=== PATIENT | male | born 1955 | race Caucasian/White ===

== ENCOUNTER 2019-12-27 10:08 | Day surgery (SDC) | payer MEDICARE, OTHER, SELFPAY ==
[2019-12-23 11:45] VITALS: BMI 28.3
--- NOTE | 2019-12-25 12:57 | P.CONAN_ITS ---
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 Hiatal hernia History of Ortega's esophagus History of gastrostomy tube placement History of high cholesterol Hypertension Surgical History Surgical History History of ERCP History of esophagogastroduodenoscopy (EGD) History of liver biopsy Hx of cerebral aneurysm repair Hx of cholecystectomy Hx of colonoscopy Hx of hemorrhoidectomy Hx of tracheostomy Social History Social History Smoking Status: Former smoker Smoking Quit Date: 1995 Use of substances other than those prescribed or required for medical reasons: No Have you been hit, kicked, punched, or otherwise hurt by someone within the past year? If so, by whom?: No Advance Directives: No Advance Directives Information Provided: No Advance Directives on File: No Recently lost weight without trying: No Meds Allergies Allergy/AdvReac Type Severity Reaction Status Date / Time morphine [MORPHINE] AdvReac Unknown Nausea and Unverified 12/23/19 11:45 Vomiting Influenza Vac Split Quad Allergy Unknown Hx of Uncoded 08/21/19 00:00 Guillain [place] Syndrome Exam Exam Date and Time: December 25, 2019 1257 Height,Weight and Vital Signs: Height 5 ft 7 in Weight 82.1 kg Pertinent Lab Results Pertinent Lab Results: ECHO 12/2018: LV sys function nml, EF 55-60%, no R WMA, no obv valve path, cannot exclude interatrial shunt BUBBLE STUDY 12/2018: No PFO Assessment and Plan Assessment Anesthesia Assessment: Chart Reviewed (12/25/19 ) Documented by User: Julianne Patterson 12/27/19 11:03 [facility] Past Medical History Medical History (Updated 12/25/19 @ 12:59 by Alicia Mike) Cerebral aneurysm GERD (gastroesophageal reflux disease) 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 Hiatal hernia History of Ortega's esophagus History of gastrostomy tube placement History of high cholesterol Hypertension Family History Family history of problems with anesthesia: No Surgical History Surgical History History of ERCP History of esophagogastroduodenoscopy (EGD) History of liver biopsy Hx of cerebral aneurysm repair Hx of cholecystectomy Hx of colonoscopy Hx of hemorrhoidectomy Hx of tracheostomy History of Problems with Anesthesia: No Social History Social History Smoking Status: Former smoker Smoking Quit Date: 1995 Use of substances other than those prescribed or required for medical reasons: No Have you been hit, kicked, punched, or otherwise hurt by someone within the past year? If so, by whom?: No Advance Directives: No Advance Directives Information Provided: No Advance Directives on File: No Recently lost weight without trying: No Meds Allergies Allergy/AdvReac Type Severity Reaction Status Date / Time morphine [MORPHINE] AdvReac Unknown Nausea and Unverified 12/23/19 11:45 Vomiting Influenza Vac Split Quad Allergy Unknown Hx of Uncoded 08/21/19 00:00 Guillain [place] Syndrome Exam Height,Weight and Vital Signs: Vital Signs Temp Pulse Resp BP Pulse Ox 12/27/19 10:24 98.1 F 59 16 133/85 96 Airway Mallampati Class: II TM Dist: >3cm Neck ROM: Full Loose/Missing/Broken Teeth: No Heart: RRR Lungs: CTAB Assessment and Plan Assessment Anesthesia Assessment: Anesthesia Plan Discussed, Consent Obtained and Chart Reviewed Final Anesthetic Review NPO: Yes Intake Type: Clears Intake Timing: Greater than 8 hours and Solids Intake Timing: Greater than 8 hours ASA Class: III Final Preanesthetic Review: No Changes in Pt Med Stat, Meds & Allergies Reviewed, Consent Obtained/Reviewed, Med/Surg/Anes Hx Reviewed and Anes Risks/Benef Reviewed Patient Risk: Intermediate Procedure Risk: Low Anesthetic Plan Anesthetic Plan: MAC: Disposition: Standard PACU
[2019-12-27 10:24] VITALS: BP 133/85; PULSE 59; RESP 16; TEMP 36.7; O2SAT 96; BMI 27.8
--- NOTE | 2019-12-27 11:53 | PM.OP ---
Brief Operative Note Date of procedure: 12/27/19 Pre-op diagnosis: Ortega's esophagus, Screening Post-op diagnosis: other (Hiatal hernia, GERD, Colon polyps, Diverticulosis, Internal Hemorrhoids) Procedure: EGD with biopsy, Colonoscopy to cecum and TI with Biopsy and removal of polyps Anesthesia: MAC Surgeon: Alton Samayoa Pathology: other (A. EGJ at 34cm B. Polyps at 60cm C. Polyp at 50cm) Condition: stable Disposition: PACU
[2019-12-27 11:56] VITALS: BP 95/62; PULSE 64; RESP 18; TEMP 36.2; O2SAT 100
[2019-12-27 12:09] VITALS: BP 105/68; PULSE 69; RESP 17
--- NOTE | 2019-12-27 13:24 | OP_ITS ---
SURGEON: Alton Samayoa MD INDICATIONS: The patient presents for evaluation of gastroesophageal reflux, history of Ortega's esophagus, personal history of tubular adenoma of the colon, and colorectal cancer screening. Full consent has been obtained from him for this, including risks of bleeding and perforation. PREOPERATIVE DIAGNOSIS: POSTOPERATIVE DIAGNOSIS: PROCEDURE PERFORMED: Esophagogastroduodenoscopy with biopsy and colonoscopy to the cecum and terminal ileum with biopsy and removal of polyps. ESTIMATED BLOOD LOSS: COMPLICATIONS: ANESTHESIA: Monitored anesthesia care. ASSISTANTS: SPECIMENS: PREOPERATIVE DIAGNOSES: Gastroesophageal reflux, Ortega's esophagus, personal history of tubular adenoma of the colon, colorectal cancer screening. POSTOPERATIVE DIAGNOSES: Gastroesophageal reflux, Ortega's esophagus, personal history of tubular adenoma of the colon, colorectal cancer screening, hiatal hernia, colon polyps, diverticulosis, and internal hemorrhoids. DESCRIPTION OF PROCEDURE: The patient was placed in the left lateral decubitus position. The Olympus video gastroscope was passed in the posterior oropharynx and upper esophagus under direct vision. The scope was passed slowly into the distal esophagus. The gastroesophageal junction appeared at 34 cm. There was a very slight irregularity consistent with reflux, but no definitive evidence of Ortega's mucosa. There was no esophagitis. The scope was entered into the stomach. There was a small to moderate-sized hiatal hernia. The scope was advanced to the pylorus and duodenum cannulated to the descending portion. The duodenum including the bulb appeared normal without mass or ulceration. The scope was withdrawn back into the stomach. The gastric antrum and body appeared normal with good peristalsis. The scope was retroflexed visualizing the proximal stomach carefully, which appeared normal, without any sign of mass or ulceration. Scope was straightened. Scope was withdrawn back in the esophagus. Biopsies were obtained at the EG junction at 34 cm. Proximal to this, the esophageal mucosa appeared normal. The scope was withdrawn from the patient. He was turned around for the colonoscopy. The digital rectal exam revealed no abnormalities. The Olympus video pediatric colonoscope was entered into the rectum and advanced easily to the cecum. Once in the cecum, I did identify normal-appearing cecal pouch with appendiceal orifice and a normal-appearing ileocecal valve. The terminal ileum was cannulated and appeared normal. The scope was withdrawn back in the colon. The entire cecum and ileocecal valve appeared normal. The scope was slowly withdrawn assessing all mucosal surfaces carefully. Preparation was excellent. At 60 cm and at 50 cm, were flat less than 5 mm polyps, which were all biopsied and completely removed with cold biopsy forceps. I did not visualize any other polyps, colitis, nor angiodysplasia. There was a mild amount of sigmoid diverticulosis. In the rectum, scope was retroflexed visualizing internal hemorrhoids, but no other pathology. The rectal mucosa appeared normal. The scope was straightened and withdrawn from the patient. He tolerated the procedure well and was returned to the recovery area in stable condition. IMPRESSION: 1. Colon polyps, status post biopsy and removal. 2. Diverticulosis. 3. Internal hemorrhoids. 4. Hiatal hernia, history of Ortega's esophagus. PLAN: The results of biopsy will be checked. I would recommend a repeat upper endoscopy and colonoscopy in 5 years for further screening and surveillance. He was advised to continue his omeprazole and loperamide. He will otherwise see me on a p.r.n. basis. This has been discussed with his . MD EARL Wallace/FIDEL / [id number]
== END 2019-12-27 13:20 | disposition home or self-care (01) ==
PROVIDERS: PCP Internal Medicine; Visit Provider Internal Medicine
PROC: (CPT 45380; principal; 2019-12-27 11:30)
DX: Z12.11 Encounter for screening for malignant neoplasm of colon (principal); Z86.010 Personal history of colon polyps; K57.30 Diverticulosis of large intestine without perforation or abscess without bleeding; D12.4 Benign neoplasm of descending colon; D12.5 Benign neoplasm of sigmoid colon; K64.8 Other hemorrhoids; K21.00 Gastro-esophageal reflux disease with esophagitis, without bleeding; K22.70 Barrett's esophagus without dysplasia; K44.9 Diaphragmatic hernia without obstruction or gangrene; I10 Essential (primary) hypertension; G61.0 Guillain-Barre syndrome; Z79.899 Other long term (current) drug therapy; Z90.49 Acquired absence of other specified parts of digestive tract; Z87.891 Personal history of nicotine dependence; Z88.8 Allergy status to other drugs, medicaments and biological substances
CPT/HCPCS: 45380; 43239; 88305

== ENCOUNTER 2020-02-28 06:33 | Outpatient (REF) | payer MEDICARE, OTHER, SELFPAY ==
[2020-02-28 11:50] LABS: Alanine Aminotransferase 19 U/L (0-40); Albumin Level 4.4 g/dL (3.5-5.0); Alkaline Phosphatase 59 U/L (39-117); Anion Gap 15 (12-20); Aspartate Amino Transferase 18 U/L (5-37); Bilirubin Total 0.9 mg/dL (0.0-1.0); Blood Urea Nitrogen 26 mg/dL (9-16); Calcium 9.3 mg/dL (8.4-10.2); Carbon Dioxide 25 mmol/L (22-29); Chloride 105 mmol/L (96-108); Cholesterol 194 mg/dL; Estimated Glomerular Filt Rate 51; Glucose Fasting 96 mg/dL (60-99); HDL Cholesterol 46 mg/dL; LDL Cholesterol Calculated 123 mg/dl; Potassium 4.4 mmol/l (3.3-5.1); Sodium 141 mmol/L (135-145); Total Protein 7.4 g/dL (6.5-8.0); Triglycerides 125 mg/dL
[2020-02-28 11:59] LABS: Prostate Specific Antigen Scr 3.44 ng/mL (<0.05-4.0)
== END 2020-02-28 06:34 | disposition home or self-care (01) ==
LOC: HO.HMGCLDS 06:33
PROVIDERS: PCP Nurse Practitioner Family; Visit Provider Nurse Practitioner Family
DX: I10 Essential (primary) hypertension (principal); Z12.5 Encounter for screening for malignant neoplasm of prostate
CPT/HCPCS: 80053; 80061; 84153; 84443

== ENCOUNTER → 2020-05-07 14:45 | Outpatient (BNVA) | payer MEDICARE, OTHER, SELFPAY | PROVIDERS: PCP Nurse Practitioner Family; Visit Provider Urology | DX: Z13.89 Encounter for screening for other disorder (principal) | CPT/HCPCS: 99212 ==

== ENCOUNTER → 2020-06-04 10:24 | Outpatient (BNVA) | payer MEDICARE, OTHER, SELFPAY | PROVIDERS: PCP Nurse Practitioner Family; Visit Provider Urology | DX: Z13.89 Encounter for screening for other disorder (principal) | CPT/HCPCS: Q3014 ==

== ENCOUNTER 2020-06-22 | Outpatient (REF) | payer MEDICARE, OTHER, SELFPAY ==
--- NOTE | ~2020-06-22 | XR_ITS ---
EXAMINATION: XR CERVICAL SPINE CLINICAL INFORMATION: Cervical disc disorder. COMPARISON: None TECHNIQUE: 3 views of the cervical spine were obtained. FINDINGS: There is no abnormal prevertebral soft tissue swelling identified. No acute fracture is seen. There is some degenerative disc space narrowing seen C3 through C6. Some marginal spurring is seen C3 through C7. XR/XR cervical spine 3V IMPRESSION: Multilevel cervical spondylosis as described.
[2020-06-22 10:42] LABS: MANUAL DIFF FLAG NO
[2020-06-22 10:49] LABS: Basophils Absolute Auto 0.1 X10*3/uL (0.0-0.2); Basophils Percent Auto 0.9 % (0-2); Eosinophils Absolute Auto 0.2 X10*3/uL (0.0-0.4); Eosinophils Percent Auto 2.9 % (0-4); Hematocrit 47.4 % (42-52); Hemoglobin 15.6 g/dl (14.0-18.0); Imm Gran Abs Auto 0.02 X10*3/uL (0.00-0.03); Imm Gran Pct Auto 0.4 % (0.0-0.4); Lymphocytes Absolute Auto 1.4 X10*3/uL (1.2-4.9); Lymphocytes Percent Auto 26.5 % (20-40); Mean Corpuscular HGB Conc 32.9 g/dl (31.0-36.0); Mean Corpuscular Hemoglobin 29.2 pg (27.0-33.0); Mean Corpuscular Volume 88.6 fL (80-98); Monocytes Absolute Auto 0.6 X10*3/uL (0.1-1.2); Monocytes Percent Auto 10.8 % (2-11); Neutrophils Absolute Auto 3.2 X10*3/uL (2.0-8.3); Neutrophils Percent Auto 58.5 % (45-73); Platelet Count 177 X10*3/uL (160-400); Red Blood Count 5.35 X10*6/uL (4.60-5.80); Red Cell Distribution Width 13.1 % (11.0-16.0); White Blood Count 5.4 X10*3/uL (4.8-10.8)
[2020-06-22 11:16] LABS: Alanine Aminotransferase 24 U/L (0-40); Albumin Level 4.6 g/dL (3.5-5.0); Alkaline Phosphatase 63 U/L (39-117); Anion Gap 15 (12-20); Aspartate Amino Transferase 22 U/L (5-37); Bilirubin Total 0.6 mg/dL (0.0-1.0); Blood Urea Nitrogen 22 mg/dL (9-16); Calcium 9.5 mg/dL (8.4-10.2); Carbon Dioxide 25 mmol/L (22-29); Chloride 105 mmol/L (96-108); Estimated Glomerular Filt Rate 49; Glucose Random 104 mg/dL (60-115); Potassium 5.2 mmol/L (3.3-5.1); Sodium 140 mmol/L (135-145); Total Protein 7.6 g/dL (6.5-8.0)
[2020-06-22 11:47] LABS: CDIFF Ag Negative (Negative); CDIFF Internal ctrl Dots and bkg OK (V); CDiff Toxin Negative (Negative)
[2020-06-22 12:45] LABS: Leukocytes Stool Qualitative NEGATIVE (NEGATIVE)
== END 2020-06-22 00:01 | disposition home or self-care (01) ==
LOC: HO.HMGCLNP
PROVIDERS: PCP Nurse Practitioner Family; Visit Provider Nurse Practitioner Family
DX: M50.90 Cervical disc disorder, unspecified, unspecified cervical region (principal); R19.7 Diarrhea, unspecified
CPT/HCPCS: 72040; 80053; 84443; 85025; 87045; 87046; 87177; 87209; 87324; 87329; 87338; 87449; 89055

== ENCOUNTER 2020-06-23 08:06 | Outpatient (REF) | payer MEDICARE, OTHER, SELFPAY ==
[2020-06-23 09:15] LABS: Alanine Aminotransferase 22 U/L (0-40); Albumin Level 4.4 g/dL (3.5-5.0); Alkaline Phosphatase 57 U/L (39-117); Anion Gap 13 (12-20); Aspartate Amino Transferase 20 U/L (5-37); Bilirubin Total 0.5 mg/dL (0.0-1.0); Blood Urea Nitrogen 19 mg/dL (9-16); Calcium 8.6 mg/dL (8.4-10.2); Carbon Dioxide 27 mmol/L (22-29); Chloride 104 mmol/L (96-108); Estimated Glomerular Filt Rate 48; Glucose Random 107 mg/dL (60-115); Potassium 4.5 mmol/L (3.3-5.1); Sodium 139 mmol/L (135-145); Total Protein 7.2 g/dL (6.5-8.0)
== END 2020-06-23 08:07 | disposition home or self-care (01) ==
LOC: HO.LAB 08:06
PROVIDERS: PCP Nurse Practitioner Family; Visit Provider Nurse Practitioner Family
DX: E87.5 Hyperkalemia (principal); R79.89 Other specified abnormal findings of blood chemistry
CPT/HCPCS: 36415; 80053

== ENCOUNTER 2020-08-06 12:08 | Outpatient (REF) | payer MEDICARE, OTHER, SELFPAY ==
[2020-08-06 13:11] LABS: Glucose Urine UA NEG (NEG); Leukocyte Esterase Urine NEG (NEG); Nitrite Urine NEG (NEG); Specific Gravity - Urine 1.015 (1.005-1.025); Urine Blood NEG (NEG); Urine Ketones NEG (NEG); Urine Protein NEG (NEG-TRACE)
[2020-08-06 13:14] LABS: Appearance Urine CLEAR; Color Urine YELLOW
[2020-08-06 13:25] LABS: Anion Gap 12 (12-20); Blood Urea Nitrogen 25 mg/dL (9-16); Carbon Dioxide 28 mmol/L (22-29); Chloride 102 mmol/L (96-108); Estimated Glomerular Filt Rate 49; Sodium 137 mmol/L (135-145)
[2020-08-06 13:54] LABS: RBC Urine 0-2 /HPF (0); WBC Urine 0 /HPF (0-4)
[2020-08-06 13:59] LABS: Creatinine Urine 50.39 mg/dL; Total Protein Urine Random < 7 mg/dL (<12)
== END 2020-08-06 12:09 | disposition home or self-care (01) ==
LOC: HO.LAB 12:08
PROVIDERS: PCP Internal Medicine; Visit Provider Internal Medicine Nephrology
DX: I10 Essential (primary) hypertension (principal)
CPT/HCPCS: 36415; 80051; 81001; 82310; 82565; 84156; 84520

== ENCOUNTER 2020-10-09 07:48 | Outpatient (REF) | payer MEDICARE, OTHER, SELFPAY ==
[2020-10-09 09:41] LABS: TSH reflex Free T4 0.74 uIU/mL (0.32-4.0)
[2020-10-09 09:43] LABS: Alanine Aminotransferase 19 U/L (0-40); Albumin Level 4.3 g/dL (3.5-5.0); Alkaline Phosphatase 54 U/L (39-117); Anion Gap 12 (12-20); Aspartate Amino Transferase 19 U/L (5-37); Bilirubin Total 0.7 mg/dL (0.0-1.0); Blood Urea Nitrogen 23 mg/dL (9-16); Calcium 9.5 mg/dL (8.4-10.2); Carbon Dioxide 28 mmol/L (22-29); Chloride 107 mmol/L (96-108); Cholesterol 196 mg/dL; Estimated Glomerular Filt Rate 43; Glucose Fasting 101 mg/dL (60-99); HDL Cholesterol 41 mg/dL; LDL Cholesterol Calculated 132 mg/dl; Potassium 5.3 mmol/L (3.3-5.1); Sodium 142 mmol/L (135-145); Total Protein 7.1 g/dL (6.5-8.0); Triglycerides 118 mg/dL
== END 2020-10-09 07:49 | disposition home or self-care (01) ==
LOC: HO.LAB 07:48
PROVIDERS: PCP Internal Medicine; Visit Provider Nurse Practitioner Family
DX: I10 Essential (primary) hypertension (principal)
CPT/HCPCS: 36415; 80053; 80061; 84443

== ENCOUNTER 2020-10-23 06:59 | Outpatient (REF) | payer MEDICARE, OTHER, SELFPAY ==
[2020-10-23 07:58] LABS: Anion Gap 13 (12-20); Carbon Dioxide 24 mmol/L (22-29); Chloride 108 mmol/L (96-108); Potassium 4.9 mmol/L (3.3-5.1); Sodium 140 mmol/L (135-145)
== END 2020-10-23 07:00 | disposition home or self-care (01) ==
LOC: HO.LAB 06:59
PROVIDERS: PCP Nurse Practitioner Family; Visit Provider Nurse Practitioner Family
DX: E87.5 Hyperkalemia (principal)
CPT/HCPCS: 36415; 80051

== ENCOUNTER 2021-02-26 09:34 | Outpatient (REF) | payer MEDICARE, OTHER, SELFPAY ==
[2021-02-26 10:30] LABS: Blood Urea Nitrogen 24 mg/dL (9-16); Estimated Glomerular Filt Rate 42
== END 2021-02-26 09:35 | disposition home or self-care (01) ==
LOC: HO.LAB 09:34
PROVIDERS: PCP Internal Medicine; Visit Provider Psychiatry & Neurology Neurology
DX: Z01.812 Encounter for preprocedural laboratory examination (principal); I67.1 Cerebral aneurysm, nonruptured
CPT/HCPCS: 36415; 82565; 84520

== ENCOUNTER 2021-03-01 08:45 | Outpatient (REF) | payer MEDICARE, OTHER, SELFPAY ==
--- NOTE | ~2021-03-01 | CT_ITS ---
EXAMINATION: CT ANGIOGRAM BRAIN WITH CONTRAST CLINICAL INFORMATION: Cerebral aneurysm. COMPARISON: Head CT 04/19/2018. TECHNIQUE: Test bolus sequences followed by intravenous administration 75 mL of Omnipaque 350. Helical imaging was performed in the axial plane from the skull base to the skull vertex. Delayed postcontrast imaging of the head was also performed. The data was processed at the chief cardiopulmonary technologist workstation for generation of MIP sequences. Angled MIPs and volume rendered reformatted images were also generated at an offline 3D workstation. This CT examination was performed using dose optimization techniques as appropriate, variously including the following: *Automated exposure control *Adjustment of mA and/or kV according to patient size (this includes techniques or standardized protocols for targeted exams where dose is matched to indication/reason for exam; i.e. extremities or head) *Use of iterative reconstruction technique DLP: 2450 mGy-cm FINDINGS: Brain: There are postoperative findings of bilateral pterional craniotomies. Right and left-sided aneurysm clips are seen in the region of the MCAs. Encephalomalacic and gliotic changes are seen in both anterior inferior temporal lobes. There is no intracranial hemorrhage, extra-axial collection, mass effect, or territorial infarction. The ventricles are normal in size without hydrocephalus. No abnormal enhancement is seen. The dural venous sinuses are normally opacified. The extracranial structures are within normal limits. Head CTA: Allowing for streak artifact no recurrent aneurysm is seen within the region of the right or left-sided MCA aneurysm clips. No new aneurysms are seen. The anterior and posterior circulations are patent. No stenosis is seen. CT/CT angio head IMPRESSION: No acute intracranial abnormality identified. Postoperative findings related to bilateral pterional craniotomies for left and right-sided MCA aneurysm clipping is redemonstrated. Within the limits of streak artifact, no definite recurrence is seen. No evidence of new aneurysm or stenosis. Chronic encephalomalacic and gliotic changes again seen in the bilateral anterior inferior temporal lobes.
[2021-03-01] MEDS: iohexoL 350 MG/ML 100 ML INFUS..BTL 75 ML IV (10:09)
== END 2021-03-01 08:46 | disposition home or self-care (01) ==
LOC: HO.CT 08:45
PROVIDERS: PCP Internal Medicine; Visit Provider Psychiatry & Neurology Neurology
DX: I67.1 Cerebral aneurysm, nonruptured (principal)
CPT/HCPCS: 70496; Q9967

== ENCOUNTER 2021-10-06 08:14 | Outpatient (REF) | payer MEDICARE, OTHER, SELFPAY ==
[2021-10-06 11:22] LABS: MANUAL DIFF FLAG NO
[2021-10-06 11:27] LABS: Basophils Absolute Auto 0.1 X10*3/uL (0.0-0.2); Basophils Percent Auto 1.2 % (0-2); Eosinophils Absolute Auto 0.1 X10*3/uL (0.0-0.4); Eosinophils Percent Auto 1.9 % (0-4); Hematocrit 44.6 % (42.0-52.0); Hemoglobin 14.9 g/dl (14.0-18.0); Imm Gran Abs Auto 0.02 X10*3/uL (0.00-0.03); Imm Gran Pct Auto 0.3 % (0.0-0.4); Lymphocytes Absolute Auto 1.4 X10*3/uL (1.2-4.9); Lymphocytes Percent Auto 24.4 % (20-40); Mean Corpuscular HGB Conc 33.4 g/dl (31.0-36.0); Mean Corpuscular Hemoglobin 29.6 pg (27.0-33.0); Mean Corpuscular Volume 88.5 fL (80.0-98.0); Mean Platelet Volume 9.4 fL (9.4-12.4); Monocytes Absolute Auto 0.5 X10*3/uL (0.1-1.2); Monocytes Percent Auto 8.8 % (2-11); Neutrophils Absolute Auto 3.7 x10*3/uL (2.0-8.3); Neutrophils Percent Auto 63.4 % (45-73); Platelet Count 182 X10*3/uL (160-400); Red Blood Count 5.04 X10*6/uL (4.60-5.80); Red Cell Distribution Width 12.9 % (11.0-16.0); White Blood Count 5.8 X10*3/uL (4.8-10.8)
[2021-10-06 11:39] LABS: Appearance Urine CLEAR; Color Urine YELLOW; Glucose Urine UA NEG (NEG); Leukocyte Esterase Urine NEG (NEG); Nitrite Urine NEG (NEG); Urine Blood NEG (NEG); Urine Ketones NEG (NEG); Urine Protein NEG (NEG-TRACE)
[2021-10-06 12:13] LABS: Alanine Aminotransferase 17 U/L (0-40); Albumin Level 4.3 g/dL (3.5-5.0); Alkaline Phosphatase 51 U/L (39-117); Anion Gap 12 (12-20); Aspartate Amino Transferase 19 U/L (5-37); Bilirubin Total 0.8 mg/dL (0.0-1.0); Blood Urea Nitrogen 24 mg/dL (9-16); Calcium 8.8 mg/dL (8.4-10.2); Carbon Dioxide 25 mmol/L (22-29); Chloride 107 mmol/L (96-108); Cholesterol 200 mg/dL; Estimated Glomerular Filt Rate 43; Glucose Fasting 122 mg/dL (60-99); HDL Cholesterol 43 mg/dL; LDL Cholesterol Calculated 134 mg/dl; Potassium 4.3 mmol/L (3.3-5.1); Sodium 140 mmol/L (135-145); Total Protein 7.2 g/dL (6.5-8.0); Triglycerides 115 mg/dL
[2021-10-06 12:21] LABS: PSA,Total (Free>4and<10) 3.96 ng/mL (0.00-4.00); TSH reflex Free T4 0.65 uIU/mL (0.32-4.0)
== END 2021-10-06 08:15 | disposition home or self-care (01) ==
LOC: HO.HMGCLDS 08:14
PROVIDERS: PCP Nurse Practitioner Family; Visit Provider Nurse Practitioner Family
DX: Z12.5 Encounter for screening for malignant neoplasm of prostate (principal); I10 Essential (primary) hypertension
CPT/HCPCS: 36415; 80053; 80061; 81003; 84153; 84443; 85025

== ENCOUNTER 2022-02-23 08:22 | Outpatient (REF) | payer MEDICARE, OTHER, SELFPAY ==
[2022-02-23 11:02] LABS: MANUAL DIFF FLAG NO
[2022-02-23 11:11] LABS: Basophils Absolute Auto 0.1 X10*3/uL (0.0-0.2); Basophils Percent Auto 1.1 % (0-2); Eosinophils Absolute Auto 0.2 X10*3/uL (0.0-0.4); Eosinophils Percent Auto 3.9 % (0-4); Hematocrit 46.4 % (42.0-52.0); Imm Gran Abs Auto 0.02 X10*3/uL (0.00-0.03); Imm Gran Pct Auto 0.4 % (0.0-0.4); Lymphocytes Absolute Auto 1.4 X10*3/uL (1.2-4.9); Mean Corpuscular HGB Conc 32.3 g/dl (31.0-36.0); Mean Corpuscular Hemoglobin 28.8 pg (27.0-33.0); Mean Corpuscular Volume 89.2 fL (80.0-98.0); Mean Platelet Volume 9.2 fL (9.4-12.4); Monocytes Absolute Auto 0.6 X10*3/uL (0.1-1.2); Monocytes Percent Auto 10.8 % (2-11); Neutrophils Absolute Auto 3.1 x10*3/uL (2.0-8.3); Neutrophils Percent Auto 57.8 % (45-73); Platelet Count 188 X10*3/uL (160-400); Red Cell Distribution Width 13.2 % (11.0-16.0); White Blood Count 5.4 X10*3/uL (4.8-10.8)
[2022-02-23 11:20] LABS: Appearance Urine Clear; Color Urine Yellow; Glucose Urine UA Negative (Negative); Leukocyte Esterase Urine Negative (Negative); Nitrite Urine Negative (Negative); PH 6.5 (5.0-9.0); Urine Blood Negative (Negative); Urine Ketones Negative (Negative); Urine Protein Negative (Neg-Trace)
[2022-02-23 12:02] LABS: TSH reflex Free T4 0.73 uIU/mL (0.32-4.0)
[2022-02-23 12:09] LABS: Alanine Aminotransferase 21 U/L (0-40); Albumin Level 4.3 g/dL (3.5-5.0); Alkaline Phosphatase 51 U/L (39-117); Anion Gap 14 (12-20); Aspartate Amino Transferase 19 U/L (5-37); Bilirubin Total 0.5 mg/dL (0.0-1.0); Blood Urea Nitrogen 26 mg/dL (9-16); Calcium 9.4 mg/dL (8.4-10.2); Carbon Dioxide 27 mmol/L (22-29); Chloride 107 mmol/L (96-108); Cholesterol 199 mg/dL; Estimated Glomerular Filt Rate 44; Glucose Fasting 99 mg/dL (60-99); HDL Cholesterol 48 mg/dL; LDL Cholesterol Calculated 133 mg/dl; Sodium 143 mmol/L (135-145); Total Protein 7.3 g/dL (6.5-8.0); Triglycerides 94 mg/dL
== END 2022-02-23 08:23 | disposition home or self-care (01) ==
LOC: HO.LAB 08:22
PROVIDERS: PCP Internal Medicine; Visit Provider Nurse Practitioner Family
DX: Z00.00 Encounter for general adult medical examination without abnormal findings (principal)
CPT/HCPCS: 36415; 80053; 80061; 81003; 84443; 85025

== ENCOUNTER → 2022-03-01 15:04 | Outpatient (BNVA) | payer MEDICARE, OTHER, SELFPAY | PROVIDERS: PCP Internal Medicine; Visit Provider Urology | DX: N52.9 Male erectile dysfunction, unspecified (principal); N32.0 Bladder-neck obstruction; R39.12 Poor urinary stream; E29.1 Testicular hypofunction | CPT/HCPCS: 51798; 99212 ==

== ENCOUNTER 2022-03-02 09:27 | Outpatient (REF) | payer MEDICARE, OTHER, SELFPAY ==
[2022-03-12 16:39] LABS: Testosterone, Free 49.8 pg/mL (35.0-155.0); Testosterone, Total 535 ng/dL (250-1100)
== END 2022-03-02 09:28 | disposition home or self-care (01) ==
LOC: HO.HMGCLDS 09:27
PROVIDERS: PCP Internal Medicine; Visit Provider Urology
DX: E11.69 Type 2 diabetes mellitus with other specified complication (principal); E29.1 Testicular hypofunction; N52.1 Erectile dysfunction due to diseases classified elsewhere
CPT/HCPCS: 36415; 84402; 84403

== ENCOUNTER → 2022-04-07 15:13 | Outpatient (BNVA) | payer MEDICARE, OTHER, SELFPAY | PROVIDERS: PCP Internal Medicine; Visit Provider Urology | DX: N39.43 Post-void dribbling (principal); N32.0 Bladder-neck obstruction; N52.9 Male erectile dysfunction, unspecified | CPT/HCPCS: Q3014 ==

== ENCOUNTER 2022-08-31 07:25 | Outpatient (REF) | payer MEDICARE, OTHER, SELFPAY ==
[2022-08-31 11:11] LABS: MANUAL DIFF FLAG NO
[2022-08-31 11:21] LABS: Appearance Urine Clear; Color Urine Yellow; Glucose Urine UA Negative (Negative); Leukocyte Esterase Urine Negative (Negative); Nitrite Urine Negative (Negative); PH 5.5 (5.0-9.0); Urine Blood Negative (Negative); Urine Ketones Negative (Negative); Urine Protein Negative (Neg-Trace)
[2022-08-31 11:24] LABS: Basophils Absolute Auto 0.1 X10*3/uL (0.0-0.2); Eosinophils Absolute Auto 0.2 X10*3/uL (0.0-0.4); Eosinophils Percent Auto 2.8 % (0-4); Hematocrit 44.9 % (42.0-52.0); Hemoglobin 14.9 g/dl (14.0-18.0); Imm Gran Abs Auto 0.04 X10*3/uL (0.00-0.03); Imm Gran Pct Auto 0.6 % (0.0-0.4); Lymphocytes Absolute Auto 1.5 X10*3/uL (1.2-4.9); Lymphocytes Percent Auto 21.2 % (20-40); Mean Corpuscular HGB Conc 33.2 g/dl (31.0-36.0); Mean Corpuscular Hemoglobin 29.2 pg (27.0-33.0); Mean Corpuscular Volume 87.9 fL (80.0-98.0); Monocytes Absolute Auto 0.6 X10*3/uL (0.1-1.2); Monocytes Percent Auto 8.8 % (2-11); Neutrophils Absolute Auto 4.8 x10*3/uL (2.0-8.3); Neutrophils Percent Auto 65.6 % (45-73); Platelet Count 197 X10*3/uL (160-400); Red Blood Count 5.11 X10*6/uL (4.60-5.80); Red Cell Distribution Width 13.3 % (11.0-16.0); White Blood Count 7.3 X10*3/uL (4.8-10.8)
[2022-08-31 11:46] LABS: Alanine Aminotransferase 25 U/L (0-40); Albumin Level 4.3 g/dL (3.5-5.0); Alkaline Phosphatase 52 U/L (39-117); Anion Gap 11 (12-20); Aspartate Amino Transferase 21 U/L (5-37); Bilirubin Total 0.7 mg/dL (0.0-1.0); Blood Urea Nitrogen 30 mg/dL (9-16); Calcium 9.9 mg/dL (8.4-10.2); Carbon Dioxide 26 mmol/L (22-29); Chloride 108 mmol/L (96-108); Cholesterol 204 mg/dL; Estimated Glomerular Filt Rate 38; Glucose Fasting 109 mg/dL (60-99); HDL Cholesterol 44 mg/dL; LDL Cholesterol Calculated 132 mg/dl; Potassium 4.8 mmol/L (3.3-5.1); Sodium 140 mmol/L (135-145); Total Protein 7.4 g/dL (6.5-8.0); Triglycerides 141 mg/dL
[2022-08-31 12:07] LABS: TSH reflex Free T4 0.78 uIU/mL (0.32-4.0)
== END 2022-08-31 07:26 | disposition home or self-care (01) ==
LOC: HO.HMGCLDS 07:25
PROVIDERS: PCP Nurse Practitioner Family; Visit Provider Nurse Practitioner Family
DX: R79.89 Other specified abnormal findings of blood chemistry (principal); R19.7 Diarrhea, unspecified; I10 Essential (primary) hypertension
CPT/HCPCS: 36415; 80053; 80061; 81003; 84443; 85025

== ENCOUNTER 2022-10-21 06:31 | Outpatient (REF) | payer MEDICARE, OTHER, SELFPAY ==
[2022-10-21 12:09] LABS: Prostate Specific Antigen Scr 4.09 ng/mL (<0.05-4.0)
[2022-10-26 12:34] LABS: Testosterone, Total 512 ng/dL (250-1100)
== END 2022-10-21 06:32 | disposition home or self-care (01) ==
LOC: HO.HMGCLDS 06:31
PROVIDERS: Urology; PCP Nurse Practitioner Family; Visit Provider Nurse Practitioner Family
DX: E11.69 Type 2 diabetes mellitus with other specified complication (principal); N52.1 Erectile dysfunction due to diseases classified elsewhere; E29.1 Testicular hypofunction; Z12.5 Encounter for screening for malignant neoplasm of prostate
CPT/HCPCS: 36415; 84153; 84402; 84403

== ENCOUNTER 2023-02-27 07:21 | Outpatient (AMB) | payer MEDICARE, OTHER, SELFPAY ==
--- NOTE | 2023-02-27 07:35 | AM.OFFVISMDC ---
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 Hiatal hernia History of Ortega's esophagus History of gastrostomy tube placement History of high cholesterol Hypertension Surgical History History of ERCP History of esophagogastroduodenoscopy (EGD) History of liver biopsy Hx of cerebral aneurysm repair Hx of cholecystectomy Hx of colonoscopy Hx of hemorrhoidectomy Hx of tracheostomy Family History Other Substance use disorder Social History Housing: House Alcohol intake: current Alcohol intake frequency: a few times a month Patient Tobacco Use Status: Former Tobacco user (27 years ago ) Tobacco use type: Cigarette Years Smoked: 20 years e-Cigarette/Vaping Use: Never Used Second Hand Smoke Exposure: No Current occupational status: retired Cognitive needs: No Hearing needs: No Vision needs: No Assessment & Plan Assessment & Plan Orders: Orders Comprehensive [place]. Panel Fast Today Z00.00 - Encounter for general adult medical examination without abnormal findings Complete Blood Count Auto Diff Today Z00.00 - Encounter for general adult medical examination without abnormal findings TSH reflex Free T4 Today Z00.00 - Encounter for general adult medical examination without abnormal findings UA CC w/rflx Micro + Cult Today Z00.00 - Encounter for general adult medical examination without abnormal findings Lipid Panel Today Z00.00 - Encounter for general adult medical examination without abnormal findings Coding
--- NOTE | 2023-02-27 07:36 | A.OFFPC_ITS ---
Vital Signs 02/27/23 07:38 Height 5 ft 7 in Weight 192 lb BMI 30.1 BP 110/68 Blood Pressure Location Rt brachial Position Sitting Pulse 73 Pulse Source Pulse Oximeter Pulse Oximetry (%) 97 Oxygen Delivery Method Room Air Intake Visit Reasons: PE Intake Note: Pt is here today for his PE Allergies morphine [MORPHINE] Adverse Reaction (Unknown, Unverified 02/27/23 07:57) Nausea and Vomiting Influenza Vac Split Quad Allergy (Unknown, Uncoded 02/27/23 07:57) Hx of Guillain [place] Syndrome Medication List - Last Reconciled 02/27/23 by MARÍA Setin famotidine 40 mg PO BEDTIME 90 days lisinopril 20 mg PO DAILY tadalafil 5 mg PO DAILY 90 days tamsulosin 0.4 mg PO BEDTIME 90 days Tobacco use date assessed: 02/27/23 Fall risk assessment: No Falls in past year Last assessed Fall Risk: 02/27/23 Dental Screening Dental Screen Date: 02/27/23 Did you have a dental visit in the last 12 months?: Yes Did you have a dental problem in the last 6 months where you did not have access to dental care?: Yes Was dental information given to patient?: Patient has dentist HPI PE HPI Details Pt is here for a PE. Will order labs. Colon screen is up to date. PSA is up to date, sees urology. Denies dribbling with urination, weak stream, and frequent nocturia. Encouraged pt to obtain his TDAP and pneumonia vaccines at his pharmacy. EKG showed RBBB, pt is completely asymptomatic. 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 History of high cholesterol Hypertension Surgical History Hx of hemorrhoidectomy Hx of cholecystectomy Hx of tracheostomy History of ERCP History of liver biopsy History of esophagogastroduodenoscopy (EGD) Hx of colonoscopy Hx of cerebral aneurysm repair Family History Other Substance use disorder Social History Housing: House Alcohol intake: current Alcohol intake frequency: a few times a month Patient Tobacco Use Status: Former Tobacco user (27 years ago ) Tobacco use type: Cigarette Years Smoked: 20 years e-Cigarette/Vaping Use: Never Used Second Hand Smoke Exposure: No Current occupational status: retired Cognitive needs: No Hearing needs: No Vision needs: Yes Questionnaire Thrive Questionnaire Date Thrive assessed: 08/10/22 JORGE ALBERTO-7 AMB Questionnaire JORGE ALBERTO-7 Date JORGE ALBERTO - 7 assessed: 08/10/22 Source: Developed by Drs. Alton Mendoza, Priscilla Doshi, Michael Gonzales and colleagues, with an educational jared from [employer]. Review of Systems Const Denies chills and Denies fever(s) Eyes Denies blurry vision ENT Denies vertigo, Denies dizziness and Denies sore throat Card Denies chest pain at rest, Denies chest pain with activity, Denies diaphoresis, Denies dyspnea and Denies dyspnea on exertion Resp Denies cough, Denies dyspnea, Denies dyspnea on exertion and Denies wheezing GI Denies abdominal pain, Denies melena, Denies hematochezia, Denies constipation, Denies diarrhea and Denies loose stools Denies hematuria Musc Denies numbness and Denies tingling Skin/Breast Denies lesions Neuro Denies vertigo, Denies dizziness, Denies numbness and Denies tingling Psych Denies anxiety, Denies depression, Denies homicidal ideation, Denies suicidal ideation and Denies other (substance abuse) Aller/Immun Denies wheezing Physical exam (Primary Care) Vital Signs: Last Vital Signs Pulse 73 02/27/23 07:38 BP 110/68 02/27/23 07:38 Pulse Ox 97 02/27/23 07:38 Oxygen Delivery Method Room Air 02/27/23 07:38 BMI result Body Mass Index 30.1 Tobacco/Smoking Status: Tobacco use Status Tobacco use date assessed 02/27/23 02/27/23 07:41 Patient Tobacco Use Status Former Tobacco user (02/27/23 07:41 years ago ) Tobacco use type Cigarette 02/27/23 07:41 e-Cigarette/Vaping Use Never Used 02/27/23 07:41 Thrive Assessment: Date of Thrive Assessment Date Thrive assessed 08/10/22 02/27/23 07:41 Const General: cooperative Nutritional Appearance: well nourished Orientation/consciousness: patient oriented x3 HENMT Head: Yes normal to inspection, Yes normocephalic and Yes atraumatic Ears: TM's normal bilaterally Eyes General: appearance normal, both eyes and all related structures Alignment and Position: alignment normal and position normal Neck Neck: Yes normal visual inspection and Yes no lymphadenopathy Thyroid: Thyroid normal Resp Effort & Inspection: normal respiratory effort Auscultation: clear to auscultation bilaterally Cardio Rate: regular rate Rhythm: regular rhythm Heart sounds: S1 normal heart sound present, S2 normal heart sound present and no murmurs GI Palpation (GI): Soft to palpation and nontender Auscultation: normal bowel sounds Male General Exam: Yes normal external exam Penis: normal penis Scrotum: scrotum normal, testes descended bilaterally and no inguinal hernias Testes: no testicular mass Skin Rashes: no rashes Neuro General: patient oriented x3, moves all extremities, no focal motor deficits and deep tendon reflexes 2+ bilaterally Romberg Test: Negative Psych Appearance: grossly normal Mental Status: mental status grossly normal Speech and movement: Normal speech and movement present Affect: normal affect Attitude: cooperative Thought process: Normal thought process present Thought content: Normal thought content present Insight: Good insight present (Psych) Judgement: Good judgement present (Psych) Assessment and Plan Assessment & Plan (1) Physical exam: Code(s): Z00.00 - Encounter for general adult medical examination without abnormal findings Plan: Labs ordered Plan The patient agreed to the use of a medical imaging technologist for this encounter. Scribed for MARÍA Loco by Nicky Self medical imaging technologist, on 02/27/2023 at 07:45 EST. Orders: Orders Comprehensive [place]. Panel Fast Today Z00.00 - Encounter for general adult medical examination without abnormal findings Complete Blood Count Auto Diff Today Z00.00 - Encounter for general adult medical examination without abnormal findings TSH reflex Free T4 Today Z00.00 - Encounter for general adult medical examination without abnormal findings UA CC w/rflx Micro + Cult Today Z00.00 - Encounter for general adult medical examination without abnormal findings Lipid Panel Today Z00.00 - Encounter for general adult medical examination without abnormal findings AMB EKG-In Office Today Z00.00 - Encounter for general adult medical examination without abnormal findings Coding Level of Care Code Est Pt Prev Care >65y(72638) Diagnoses Physical exam Z00.00
[2023-02-27 07:38] VITALS: BP 110/68; PULSE 73; O2SAT 97; BMI 30.1
== END 2023-02-27 08:20 | disposition home or self-care (01) ==
PROVIDERS: Visit Provider Nurse Practitioner Family
DX: Z00.00 Encounter for general adult medical examination without abnormal findings (principal)
CPT/HCPCS: 99397

== ENCOUNTER 2023-02-27 08:21 | Outpatient (REF) | payer MEDICARE, OTHER, SELFPAY ==
[2023-02-27 11:15] LABS: MANUAL DIFF FLAG NO
[2023-02-27 11:19] LABS: Appearance Urine Clear; Color Urine Yellow; Glucose Urine UA Negative (Negative); Leukocyte Esterase Urine Negative (Negative); Nitrite Urine Negative (Negative); PH 5.5 (5.0-9.0); Specific Gravity - Urine 1.025 (1.005-1.025); Urine Blood Negative (Negative); Urine Ketones Negative (Negative); Urine Protein Negative (Neg-Trace)
[2023-02-27 11:51] LABS: Basophils Absolute Auto 0.1 X10*3/uL (0.0-0.2); Basophils Percent Auto 1.2 % (0-2); Eosinophils Absolute Auto 0.3 X10*3/uL (0.0-0.4); Eosinophils Percent Auto 3.8 % (0-4); Hematocrit 46.4 % (42.0-52.0); Hemoglobin 15.3 g/dl (14.0-18.0); Imm Gran Abs Auto 0.07 X10*3/uL (0.00-0.03); Imm Gran Pct Auto 0.9 % (0.0-0.4); Lymphocytes Absolute Auto 1.4 X10*3/uL (1.2-4.9); Lymphocytes Percent Auto 17.8 % (20-40); Mean Corpuscular Hemoglobin 29.3 pg (27.0-33.0); Mean Corpuscular Volume 88.7 fL (80.0-98.0); Mean Platelet Volume 8.9 fL (9.4-12.4); Monocytes Absolute Auto 0.7 X10*3/uL (0.1-1.2); Monocytes Percent Auto 9.7 % (2-11); Neutrophils Absolute Auto 5.1 x10*3/uL (2.0-8.3); Neutrophils Percent Auto 66.6 % (45-73); Platelet Count 215 X10*3/uL (160-400); Red Blood Count 5.23 X10*6/uL (4.60-5.80); Red Cell Distribution Width 13.2 % (11.0-16.0); White Blood Count 7.6 X10*3/uL (4.8-10.8)
[2023-02-27 12:08] LABS: Alanine Aminotransferase 23 U/L (0-40); Albumin Level 4.1 g/dL (3.5-5.0); Alkaline Phosphatase 57 U/L (39-117); Anion Gap 12 (12-20); Aspartate Amino Transferase 20 U/L (5-37); Bilirubin Total 0.3 mg/dL (0.0-1.0); Blood Urea Nitrogen 26 mg/dL (9-16); Calcium 8.8 mg/dL (8.4-10.2); Carbon Dioxide 26 mmol/L (22-29); Chloride 107 mmol/L (96-108); Cholesterol 168 mg/dL (<200); Estimated Glomerular Filt Rate 45; Glucose Fasting 104 mg/dL (60-99); HDL Cholesterol 43 mg/dL (>40); LDL Cholesterol Calculated 105 mg/dL (<100); Potassium 4.9 mmol/L (3.3-5.1); Sodium 140 mmol/L (135-145); Total Protein 7.8 g/dL (6.5-8.0); Triglycerides 104 mg/dL (<150)
[2023-02-27 12:09] LABS: TSH reflex Free T4 0.74 uIU/mL (0.32-4.0)
== END 2023-02-27 08:22 | disposition home or self-care (01) ==
LOC: HO.HMGCLDS 08:21
PROVIDERS: PCP Nurse Practitioner Family; Visit Provider Nurse Practitioner Family
DX: Z00.00 Encounter for general adult medical examination without abnormal findings (principal); Z20.2 Contact with and (suspected) exposure to infections with a predominantly sexual mode of transmission; I10 Essential (primary) hypertension
CPT/HCPCS: 36415; 80053; 80061; 81003; 84443; 85025

== ENCOUNTER 2023-04-07 15:06 | Outpatient (AMB) | payer MEDICARE, OTHER, SELFPAY ==
--- NOTE | 2023-04-07 14:59 | A.OFFVIS_ITS ---
Intake Intake Visit Reasons: 1Y PSA(set) Intake Note: Patient is Present for Telephone Follow Up For Urology Med:Tadalafil Tamsulosin Antibiotic Allergy: None Blood Thinner: None Allergies morphine [MORPHINE] Adverse Reaction (Unknown, Verified 04/07/23 15:09) Nausea and Vomiting Influenza Vac Split Quad Allergy (Unknown, Uncoded 04/07/23 15:09) Hx of Guillain [place] Syndrome Medication List - Last Reconciled 04/07/23 by Manoj Alcaraz MD famotidine 40 mg PO BEDTIME 90 days lisinopril 20 mg PO DAILY tadalafil 5 mg PO DAILY 90 days tadalafil 20 mg PO ONCE PRN 30 days tamsulosin 0.4 mg PO BEDTIME 90 days HPI HPI Comments History of Present Illness Details Phillip PATINO is a very pleasant male. They are a patient of Nikos Holloway. They are seen in the office today for the following urologic conditions. - lower urinary tract symptoms - postvoid dribbling - erectile dyfunction Telemedicine Evaluation 15 min Consultation [employer] Video attempted Good effect from using Kegel exercises for postvoid dribbling Good response to low-dose tadalafil Twelve month follow-up Lower Urinary Tract Symptoms: Current visit is for further symptom evaluation of, lower urinary tract symptoms -large prostate on examination with PCP.. Current treatment includes observation. Prostate Symptom Score Mild (0-8), Bother 1. Symptoms include weak stream, and are stable. Prior Prostate Score unknown. PSA 01/10 2.75, 03/15 3.4, 10/15 4.0, 10/16 4.1 - T 03/17 535 Prostate volume 60gm. Testing at next visit will include prn. 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 History of high cholesterol Hypertension Surgical History Hx of hemorrhoidectomy Hx of cholecystectomy Hx of tracheostomy History of ERCP History of liver biopsy History of esophagogastroduodenoscopy (EGD) Hx of colonoscopy Hx of cerebral aneurysm repair Family History Other Substance use disorder Social History Housing: House Alcohol intake: current Alcohol intake frequency: a few times a month Patient Tobacco Use Status: Former Tobacco user (27 years ago ) Tobacco use type: Cigarette Years Smoked: 20 years e-Cigarette/Vaping Use: Never Used Second Hand Smoke Exposure: No Current occupational status: retired Cognitive needs: No Hearing needs: No Vision needs: Yes Review of Systems Const All systems reviewed & are unremarkable except as noted in HPI and below Reports no additional complaints Resp Reports no additional complaints GI Reports no additional complaints Reports as per HPI Musc Reports no additional complaints Physical Exam Telemedicine evaluation Appropriate responses Regular breathing rate and rhythm HEENT Head: Yes normal to inspection Ears: hearing grossly normal bilaterally Eyes General: appearance normal, both eyes and all related structures Neck Neck: Yes normal visual inspection Chest Chest palpation & inspection: normal inspection of the chest Resp Effort & Inspection: normal respiratory effort and able to speak in complete sentences Assessment & Plan Assessment & Plan (1) Bladder outlet obstruction: Code(s): N32.0 - Bladder-neck obstruction (2) Erectile dysfunction: Code(s): N52.9 - Male erectile dysfunction, unspecified Plan 12m f/u Medications: New tadalafil On demand medication take 60 minutes before intended activity 20 mg PO ONCE PRN 30 tabs 0RF sexual activity 30 days N52.9 - Male erectile dysfunction, unspecified Patient Instructions: Imaging studies, laboratory and physical exam results were discussed and reviewed in detail. No major barriers to patient understanding were identified. An opportunity to ask questions regarding the treatment plan was provided. All questions were answered. The patient expressed understanding and agreement with the above treatment plan. The patient is aware they should contact our office by phone for worsening of their current condition or the appearance of new urologic symptoms. Compliance is encouraged with any medications and followup testing that is ordered. It is a privilege to participate in the urologic care of your patient. If you have any questions or concerns regarding treatment for the above conditions, or other urologic issues, please do not hesitate to contact me. The office telephone contact is [phone]. This note is constructed using voice recognition software. While every effort has been made to ensure accuracy lock and dam operator errors may have been included. Yours sincerely, Dr Manoj Alcaraz MD, [facility] - Urology Providers of Expert, Compassionate Care for the Genitourinary System Telehealth Telehealth Location of provider rendering services: practice address Location of patient: address on file Patient Identification confirmed using: Name, : Yes Telehealth method: video Patient verbally consented to treatment: Yes Patient verbally consented to billing insurance company: Yes Patient informed of any privacy concerns related to visit: Yes Coding Level of Care Code Est Pt Level 4 (67260) Diagnoses Bladder outlet obstruction N32.0 Erectile dysfunction N52.9
== END 2023-04-07 15:35 | disposition home or self-care (01) ==
LOC: HO.HUSH 15:06
PROVIDERS: PCP Nurse Practitioner Family; Visit Provider Urology
DX: N32.0 Bladder-neck obstruction (principal); N52.9 Male erectile dysfunction, unspecified
CPT/HCPCS: 99214

== ENCOUNTER → 2023-04-07 15:06 | Outpatient (BNVA) | payer MEDICARE, OTHER, SELFPAY | PROVIDERS: PCP Nurse Practitioner Family; Visit Provider Urology | DX: N32.0 Bladder-neck obstruction (principal); N52.9 Male erectile dysfunction, unspecified | CPT/HCPCS: 99212 ==

== ENCOUNTER 2023-08-28 08:31 | Outpatient (AMB) | payer MEDICARE, OTHER, SELFPAY ==
--- NOTE | 2023-08-28 08:37 | MHC.PC.OV ---
Vital Signs 08/28/23 08:42 Height 5 ft 7 in Weight 190 lb BMI 29.8 BP 120/84 Blood Pressure Location Rt brachial Position Sitting Pulse 82 Pulse Source Pulse Oximeter Pulse Oximetry (%) 98 Oxygen Delivery Method Room Air Intake Visit Reasons: 6 month Follow up Intake Note: Patient here to HTN f/u. Allergies morphine [MORPHINE] Adverse Reaction (Unknown, Verified 08/28/23 09:19) Nausea and Vomiting Influenza Vac Split Quad Allergy (Unknown, Uncoded 08/28/23 09:19) Hx of Guillain [place] Syndrome Medication List - Last Reconciled 08/28/23 by MARÍA Stein famotidine 40 mg PO BEDTIME 90 days lisinopril 20 mg PO DAILY tadalafil 20 mg PO ONCE PRN 30 days tamsulosin 0.4 mg PO BEDTIME 90 days Tobacco use date assessed: 08/28/23 Fall risk assessment: No Falls in past year Last assessed Fall Risk: 08/28/23 Dental Screening Dental Screen Date: 08/28/23 Did you have a dental visit in the last 12 months?: Yes Did you have a dental problem in the last 6 months where you did not have access to dental care?: No Was dental information given to patient?: Patient has dentist HPI 6 month Follow up HPI Details HTN: Blood pressure is stable, managed with lisinopril 20mg. Will order labs. Denies chest pain, shortness of breath, headache, dizziness, and blurred vision. Pt has a hx of elevated PSA. He is following up with urology. Will order PSA. 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 History of high cholesterol Hypertension Surgical History Hx of hemorrhoidectomy Hx of cholecystectomy Hx of tracheostomy History of ERCP History of liver biopsy History of esophagogastroduodenoscopy (EGD) Hx of colonoscopy Hx of cerebral aneurysm repair Family History Other Substance use disorder Social History Housing: House Alcohol intake: current Alcohol intake frequency: a few times a month Patient Tobacco Use Status: Former Tobacco user (27 years ago ) Tobacco use type: Cigarette Years Smoked: 20 years e-Cigarette/Vaping Use: Never Used Second Hand Smoke Exposure: No Current occupational status: retired Cognitive needs: No Hearing needs: No Vision needs: Yes Questionnaire PHQ-9 Over the last 2 weeks, how often have you been bothered by any of the following problems? 1. Little interest or pleasure in doing things: not at all 2. Feeling down, depressed, or hopeless: not at all 3. Trouble falling or staying asleep, or sleeping too much: not at all 4. Feeling tired or having little energy: not at all 5. Poor appetite or overeating: not at all 6. Feeling bad about yourself - or that you are a failure or have let yourself or your family down: not at all 7. Trouble concentrating on things, such as reading the newspaper or watching television: not at all 8. Moving or speaking so slowly that other people could have noticed. Or the opposite - being so fidgety or restless that you have been moving around a lot more than usual: not at all 9. Thoughts that you would be better off or of hurting yourself in some way: not at all Total score: 0 Depression Screening Interpretation: Negative Depression Screening Done: Yes 29538 - PHQ-9 Billing: Yes Source: Developed by Drs. Alton Mendoza, Priscilla Doshi, Michael Gonzales and colleagues, with an educational jared from [employer]. Thrive Questionnaire Date Thrive assessed: 08/28/23 I am a: Patient What is your living situation today?: I have a steady place to live Within the past 12 months, did the food you bought not last and you didn't have the money to get more?: Never true Within the past 12 months, did you worry whether your food would run out before you got money to buy more?: Never true Do you have trouble paying for medicines?: No Do you have trouble getting transportation to medical appointments?: No Do you have trouble paying your heating and electricity bill?: No Do you have trouble taking care of your child, family member or friend?: No Do you have trouble with day-to-day activities such as bathing, preparing meals, shopping, managing finances, etc.?: No Are you currently unemployed and looking for a job?: No Are you interested in more education?: No Currently or been in a relationship where the following occur: I choose not to answer this question THRIVE Score: 0 JORGE ALBERTO-7 AMB Questionnaire JORGE ALBERTO-7 Date JORGE ALBERTO - 7 assessed: 08/28/23 Feeling nervous, anxious, or on edge: 0 = Not at all Not being able to stop or control worryin = Not at all Worrying too much about different things: 0 = Not at all Trouble relaxin = Not at all Being so restless that it is hard to sit still: 0 = Not at all Becoming easily annoyed or irritable: 0 = Not at all Feeling afraid as if something awful might happen: 0 = Not at all Total JORGE ALBERTO-7 score (0-4 normal; 5-9 mild; 10-14 moderate; 15-21 severe): 0 Source: Developed by Drs. Alton Mendoza, Priscilla Doshi, Michael Gonzales and colleagues, with an educational jared from [employer]. JORGE ALBERTO-7 Assessment Billing JORGE ALBERTO-7 Assessment Tool: JORGE ALBERTO-7 Assessment 90214 Review of Systems Const Reports as per HPI Physical exam (Primary Care) Vital Signs: Last Vital Signs Pulse 82 08/28/23 08:42 BP 120/84 08/28/23 08:42 Pulse Ox 98 08/28/23 08:42 Oxygen Delivery Method Room Air 08/28/23 08:42 BMI result Body Mass Index 29.8 Tobacco/Smoking Status: Tobacco use Status Tobacco use date assessed 08/28/23 08/28/23 08:47 Patient Tobacco Use Status Former Tobacco user (27 08/28/23 08:40 years ago ) Tobacco use type Cigarette 08/28/23 08:40 e-Cigarette/Vaping Use Never Used 08/28/23 08:40 PHQ-9: PHQ-9 Score PHQ-9: Total score 0 08/28/23 09:05 Depression Screening Interpretation: Negative Thrive Assessment: Date of Thrive Assessment Date Thrive assessed 08/28/23 08/28/23 09:05 Currently or been in a relationship where the following occur: I choose not to answer this question Const General: cooperative Orientation/consciousness: patient oriented x3 Resp Effort & Inspection: normal respiratory effort Auscultation: clear to auscultation bilaterally Cardio Rate: regular rate Rhythm: regular rhythm Heart sounds: S1 normal heart sound present and S2 normal heart sound present Neuro General: patient oriented x3 Extrem Right lower extremity: no edema Left lower extremity: no edema Psych Appearance: grossly normal Mental Status: mental status grossly normal Speech and movement: Normal speech and movement present Affect: normal affect Attitude: cooperative Thought process: Normal thought process present Thought content: Normal thought content present Insight: Good insight present (Psych) Judgement: Good judgement present (Psych) Assessment and Plan Assessment & Plan (1) HTN (hypertension): Code(s): I10 - Essential (primary) hypertension Plan: Stable, labs ordered (2) Elevated PSA: Code(s): R97.20 - Elevated prostate specific antigen [PSA] Plan: PSA ordered Plan The patient agreed to the use of a emergency medicine medical director for this encounter. Scribed for MARÍA Loco by Nicky Self emergency medicine medical director, on 08/28/2023 at 08:55 EST. Orders: Orders Complete Blood Count Auto Diff Today I10 - Essential (primary) hypertension Comprehensive [place]. Panel Fast Today I10 - Essential (primary) hypertension UA CC w/rflx Micro + Cult Today I10 - Essential (primary) hypertension Prostate Specific Antigen Scr Today R97.20 - Elevated prostate specific antigen [PSA] TSH reflex Free T4 Today I10 - Essential (primary) hypertension Lipid Panel Today I10 - Essential (primary) hypertension Coding Level of Care Code Est Pt Level 3 (99122) Diagnoses HTN (hypertension) I10 Elevated PSA R97.20 Additional Codes JORGE ALBERTO-7 Assessment Billing - JORGE ALBERTO-7 Assessment Tool: JORGE ALBERTO-7 Assessment 99484 ([id number])
[2023-08-28 08:42] VITALS: BP 120/84; PULSE 82; O2SAT 98; BMI 29.8
== END 2023-08-28 10:40 | disposition home or self-care (01) ==
PROVIDERS: PCP Nurse Practitioner Family; Visit Provider Nurse Practitioner Family
DX: I10 Essential (primary) hypertension (principal); R97.20 Elevated prostate specific antigen [PSA]
CPT/HCPCS: 99213

== ENCOUNTER 2023-09-20 06:47 | Outpatient (REF) | payer MEDICARE, OTHER, SELFPAY ==
[2023-09-20 11:11] LABS: MANUAL DIFF FLAG NO
[2023-09-20 11:24] LABS: Basophils Absolute Auto 0.1 X10*3/uL (0.0-0.2); Basophils Percent Auto 1.3 % (0-2); Eosinophils Absolute Auto 0.1 X10*3/uL (0.0-0.4); Eosinophils Percent Auto 2.6 % (0-4); Hematocrit 42.2 % (42.0-52.0); Hemoglobin 14.1 g/dl (14.0-18.0); Imm Gran Abs Auto 0.01 X10*3/uL (0.00-0.03); Imm Gran Pct Auto 0.2 % (0.0-0.4); Lymphocytes Absolute Auto 1.5 X10*3/uL (1.2-4.9); Lymphocytes Percent Auto 27.8 % (20-40); Mean Corpuscular HGB Conc 33.4 g/dl (31.0-36.0); Mean Corpuscular Hemoglobin 29.6 pg (27.0-33.0); Mean Corpuscular Volume 88.7 fL (80.0-98.0); Mean Platelet Volume 9.4 fL (9.4-12.4); Monocytes Absolute Auto 0.5 X10*3/uL (0.1-1.2); Monocytes Percent Auto 9.1 % (2-11); Neutrophils Absolute Auto 3.1 x10*3/uL (2.0-8.3); Platelet Count 199 X10*3/uL (160-400); Red Blood Count 4.76 X10*6/uL (4.60-5.80); Red Cell Distribution Width 13.8 % (11.0-16.0); White Blood Count 5.3 X10*3/uL (4.8-10.8)
[2023-09-20 11:31] LABS: Appearance Urine Clear; Color Urine Yellow; Glucose Urine UA Negative (Negative); Leukocyte Esterase Urine Negative (Negative); Nitrite Urine Negative (Negative); PH 5.5 (5.0-9.0); Urine Blood Negative (Negative); Urine Ketones Negative (Negative); Urine Protein Negative (Neg-Trace)
[2023-09-20 11:54] LABS: Alanine Aminotransferase 32 U/L (0-40); Albumin Level 3.9 g/dL (3.5-5.0); Alkaline Phosphatase 48 U/L (39-117); Anion Gap 12 (12-20); Aspartate Amino Transferase 26 U/L (5-37); Bilirubin Total 0.5 mg/dL (0.0-1.0); Blood Urea Nitrogen 25 mg/dL (9-16); Calcium 9.1 mg/dL (8.4-10.2); Carbon Dioxide 25 mmol/L (22-29); Chloride 110 mmol/L (96-108); Cholesterol 178 mg/dL (<200); Estimated Glomerular Filt Rate 43; Glucose Fasting 107 mg/dL (60-99); HDL Cholesterol 45 mg/dL (>40); LDL Cholesterol Calculated 111 mg/dL (<100); Potassium 4.7 mmol/L (3.3-5.1); Sodium 142 mmol/L (135-145); Total Protein 6.9 g/dL (6.5-8.0); Triglycerides 113 mg/dL (<150)
[2023-09-20 11:55] LABS: Prostate Specific Antigen Scr 3.61 ng/mL (<0.05-4.0)
== END 2023-09-20 06:48 | disposition home or self-care (01) ==
LOC: HO.HMGCLDS 06:47
PROVIDERS: PCP Nurse Practitioner Family; Visit Provider Nurse Practitioner Family
DX: I10 Essential (primary) hypertension (principal); R97.20 Elevated prostate specific antigen [PSA]; Z12.5 Encounter for screening for malignant neoplasm of prostate
CPT/HCPCS: 36415; 80053; 80061; 81003; 84153; 84443; 85025

== ENCOUNTER 2024-03-11 10:40 | Outpatient (AMB) | payer MEDICARE, OTHER, SELFPAY ==
[2024-03-11 10:45] VITALS: BP 122/80; PULSE 78; O2SAT 98; BMI 30.2
--- NOTE | 2024-03-11 10:45 | A.OFFPC_ITS ---
Vital Signs 03/11/24 10:45 Height 5 ft 7 in Weight 193 lb BMI 30.2 BP 122/80 Blood Pressure Location Rt brachial Position Sitting Pulse 78 Pulse Source Pulse Oximeter Pulse Oximetry (%) 98 Intake Visit Reasons: PE Intake Note: pt is here for PE Laboratory Machinist Required: No Allergies morphine [MORPHINE] Adverse Reaction (Unknown, Verified 03/11/24 12:15) Nausea and Vomiting Influenza Vac Split Quad Allergy (Unknown, Uncoded 03/11/24 12:15) Hx of Guillain [place] Syndrome Medication List - Last Reconciled 03/11/24 by Nikos Cooper, [facility]- famotidine 40 mg PO BEDTIME 90 days lisinopril 20 mg PO DAILY tadalafil 20 mg PO ONCE PRN 30 days tamsulosin 0.4 mg PO BEDTIME 90 days Tobacco use date assessed: 08/28/23 Fall risk assessment: No Falls in past year Last assessed Fall Risk: 03/11/24 Dental Screening Dental Screen Date: 08/28/23 HPI PE HPI Details History of Present Illness The patient is a 68-year-old male presenting for a physical examination. He reports issues related to benign prostatic hyperplasia, specifically urinary symptoms when taking Flomax (tamsulosin). The patient experienced no anticipated urinary urgency or incontinence prior to initiating Flomax. However, he observed increased urinary urgency and leakage upon taking the medication, particularly when getting out of the car and upon arriving home. The patient plans to consult with Dr. Alcaraz, a urologist, about these symptoms in the upcoming month. The patient also has a history of kidney disease, currently managed by a overhead irrigator, Dr. Mcgovern, as well as a gastrointestinal disorder managed by Dr. Samayoa. The patient has not seen a neurologist, Dr. De La Paz, for over a year. Health Maintenance - Discussed PSA (Prostate-Specific Antig en) testing, ordered. - Reminder for the upcoming colonoscopy next year. - Immunization review: Received pneumoco ccal vaccine in 2021, plans for 7th COVID vaccine dose. - no flu vaccine (Hx of GBS). 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 - Exercise: Plans to participate in [employer] 10-miler next year. - Housing: Discussed potential move to a [facility] community ( [facility] ) offering various recreational activities. - Travel: Recently visited [place] with autistic stepson, discussed accommodations made for his condition. - Pet Ownership: Owns a dog, no children . Review of Systems - Constitutional: Denies chest pain, kayla rtness of breath, anxiety, or depression. - Gastrointestinal: Denies constipation or diarrhea. - Genitourinary: Reports urinary issues related to Flomax intake. - Musculoskeletal: Denies decreased phys ical ability, expresses intention to participate in long-distance race. - Neurological: Reports no current care by neurologist, previously saw Dr. Arambula Physical Exam General: Cooperative, healthy appearing, comfortable, no acute distress and well developed Orientation: Patient oriented x3 Limitations: No limitations Head: Normal to inspection Ears: Hearing grossly normal bilaterally Nose: Normal external nose present Face and sinus: Normal facial exam Eyes: Appearance normal, both eyes and all related structures Neck: Normal visual inspection and Yes full ROM Respiratory: Normal respiratory effort and able to speak in complete sentences. Clear to auscultation bilaterally Cardiovascular: Regular rate and rhythm. Normal S1 and S2 GI: Normal to inspection. Soft to palpation and nontender Skin: No rashes or lesions noted, but patient reports dry and itchy skin, especially in winter Neuro: Patient oriented x3, slight right mouth palsy/right eyelid lag (baseline, previous Hx GBS) Extremities: Normal to inspection Results Plan - Discuss the urinary symptoms with Alexandre ax at the next appointment with Dr. Alcaraz, the urologist. - Schedule and perform PSA testing as pa rt of routine health maintenance. - Monitor kidney condition through [facility] nephrological care with Dr. Kathy abernathy. - Continue gastrointestinal management w ith Dr. Samayoa. - Follow-up in six months, ensure labs a re completed prior to the visit. Patient was informed and verbally consented to the use of an ambient scribe for clinic note documentation during this visit. Discussion Notes I discussed with the patient his current urinary symptoms potentially linked to Flomax. We talked about the medication?s role in relaxing the muscles to facilitate urination and how this could contribute to his perceived increase in urgency and incontinence. I advised him to bring this concern to Dr. Alcaraz, the urologist, during his next appointment. We reviewed his vaccination history and agreed on continuing with the COVID shots and recognizing the timing for his pneumococcal shot given in 2021. I confirmed that his next colonoscopy is due next year and emphasized the importance of routine preventative screening. We agreed on the arrangement for his follow-up visits and the need to obtain fasting labs before that appointment. Patient Instructions - Attend follow-up appointment in [facility], ensuring fasting labs are completed beforehand. - Discuss the urinary symptoms with Dr. Alcaraz at the next visit. - Maintain scheduled colonoscopy and con boom cat operator annual flu vaccine depending on risk assessment. - Continue engaging in regular physical activity and plan for participation in the [employer] 10[employer] as intended. - Maintain awareness of any changes in g eneral health and report new symptoms or concerns promptly. 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 History of high cholesterol Hypertension Surgical History Hx of hemorrhoidectomy Hx of cholecystectomy Hx of tracheostomy History of ERCP History of liver biopsy History of esophagogastroduodenoscopy (EGD) Hx of colonoscopy Hx of cerebral aneurysm repair Family History Other Substance use disorder Social History Housing: House Alcohol intake: current Alcohol intake frequency: a few times a month Patient Tobacco Use Status: Former Tobacco user (27 years ago ) Tobacco use type: Cigarette Years Smoked: 20 years e-Cigarette/Vaping Use: Never Used Second Hand Smoke Exposure: No Current occupational status: retired Cognitive needs: No Hearing needs: No Vision needs: Yes Questionnaire PHQ-9 Over the last 2 weeks, how often have you been bothered by any of the following problems? 1. Little interest or pleasure in doing things: not at all 2. Feeling down, depressed, or hopeless: not at all 3. Trouble falling or staying asleep, or sleeping too much: not at all 4. Feeling tired or having little energy: not at all 5. Poor appetite or overeating: not at all 6. Feeling bad about yourself - or that you are a failure or have let yourself or your family down: not at all 7. Trouble concentrating on things, such as reading the newspaper or watching television: not at all 8. Moving or speaking so slowly that other people could have noticed. Or the opposite - being so fidgety or restless that you have been moving around a lot more than usual: not at all 9. Thoughts that you would be better off or of hurting yourself in some way: not at all Total score: 0 Depression Screening Interpretation: Negative Depression Screening Done: Yes 35814 - PHQ-9 Billing: Yes Source: Developed by Drs. Alton Mendoza, Priscilla Doshi, Michael Gonzales and colleagues, with an educational jared from [employer]. Thrive Questionnaire Date Thrive assessed: 03/11/24 I am a: Patient What is your living situation today?: I have a steady place to live Within the past 12 months, did the food you bought not last and you didn't have the money to get more?: Never true Within the past 12 months, did you worry whether your food would run out before you got money to buy more?: Never true Do you have trouble paying for medicines?: No Do you have trouble getting transportation to medical appointments?: No Do you have trouble paying your heating and electricity bill?: No Do you have trouble taking care of your child, family member or friend?: No Do you have trouble with day-to-day activities such as bathing, preparing meals, shopping, managing finances, etc.?: No Are you currently unemployed and looking for a job?: No Are you interested in more education?: No Please select the resources that you would like help with: None Currently or been in a relationship where the following occur: I choose not to answer THRIVE Score: 0 AUDIT C Alcohol Use Questionnaire (AUDIT-C) 1. How often do you have a drink containing alcohol?: 4 or more times a week 2. How many drinks containing alcohol do you have on a typical day when you are drinking?: 1 or 2 3. How often do you have six or more drinks on one occasion?: Never Total Score: 4 Score Reviewed/Action Taken: Yes JORGE ALBERTO-7 AMB Questionnaire JORGE ALBERTO-7 Date JORGE ALBERTO - 7 assessed: 03/11/24 Feeling nervous, anxious, or on edge: 0 = Not at all Not being able to stop or control worryin = Not at all Worrying too much about different things: 0 = Not at all Trouble relaxin = Not at all Being so restless that it is hard to sit still: 0 = Not at all Becoming easily annoyed or irritable: 0 = Not at all Feeling afraid as if something awful might happen: 0 = Not at all Total JORGE ALBERTO-7 score (0-4 normal; 5-9 mild; 10-14 moderate; 15-21 severe): 0 Source: Developed by Drs. Alton Mendoza, Priscilla Doshi, Michael Gonzales and colleagues, with an educational jared from [employer]. JORGE ALBERTO-7 Assessment Billing JORGE ALBERTO-7 Assessment Tool: JORGE ALBERTO-7 Assessment 28275 Physical exam (Primary Care) Vital Signs: Last Vital Signs Pulse 78 03/11/24 10:45 BP 122/80 03/11/24 10:45 Pulse Ox 98 03/11/24 10:45 BMI result Body Mass Index 30.2 Tobacco/Smoking Status: Tobacco use Status Tobacco use date assessed 08/28/23 03/11/24 10:48 Patient Tobacco Use Status Former Tobacco user (27 03/11/24 10:48 years ago ) Tobacco use type Cigarette 03/11/24 10:48 e-Cigarette/Vaping Use Never Used 03/11/24 10:48 PHQ-9: PHQ-9 Score PHQ-9: Total score 0 03/11/24 11:31 Depression Screening Interpretation: Negative Thrive Assessment: Date of Thrive Assessment Date Thrive assessed 03/11/24 03/11/24 10:48 Currently or been in a relationship where the following occur: I choose not to answer Coding Level of Care Code Est Pt Prev Care >65y(95576) Diagnoses Physical exam Z00.00 Screening PSA (prostate specific antigen) Z12.5 Vitamin D deficiency E55.9 Additional Codes JORGE ALBERTO-7 Assessment Billing - JORGE ALBERTO-7 Assessment Tool: JORGE ALBERTO-7 Assessment 63904 ([id number]) PHQ-9 - 48919 - PHQ-9 Billing: Yes ([id number]) Assessment & Plan Assessment & Plan (1) Physical exam: Code(s): Z00.00 - Encounter for general adult medical examination without abnormal findings Category: Medical (2) Screening PSA (prostate specific antigen): Code(s): Z12.5 - Encounter for screening for malignant neoplasm of prostate Category: Medical (3) Vitamin D deficiency: Code(s): E55.9 - Vitamin D deficiency, unspecified Category: Medical Plan . Orders: Orders UA CC w/rflx Micro + Cult Today Z00.00 - Encounter for general adult medical examination without abnormal findings Lipid Panel Today Z00.00 - Encounter for general adult medical examination without abnormal findings Prostate Specific Antigen Scr Today Z12.5 - Encounter for screening for malignant neoplasm of prostate Complete Blood Count Auto Diff Today Z00.00 - Encounter for general adult medical examination without abnormal findings Comprehensive [place]. Panel Fast Today Z00.00 - Encounter for general adult medical examination without abnormal findings TSH reflex Free T4 Today Z00.00 - Encounter for general adult medical examination without abnormal findings Vitamin D 25-OH Total Today E55.9 - Vitamin D deficiency, unspecified
== END 2024-03-11 14:30 | disposition home or self-care (01) ==
PROVIDERS: PCP Nurse Practitioner Family; Visit Provider Nurse Practitioner Family
DX: Z00.00 Encounter for general adult medical examination without abnormal findings (principal); Z12.5 Encounter for screening for malignant neoplasm of prostate; E55.9 Vitamin D deficiency, unspecified

== ENCOUNTER → 2024-03-11 10:40 | Outpatient (BNVA) | payer MEDICARE, OTHER, SELFPAY | PROVIDERS: PCP Nurse Practitioner Family; Visit Provider Nurse Practitioner Family | DX: Z00.00 Encounter for general adult medical examination without abnormal findings (principal); E55.9 Vitamin D deficiency, unspecified; N40.0 Benign prostatic hyperplasia without lower urinary tract symptoms; Z12.5 Encounter for screening for malignant neoplasm of prostate; Z79.899 Other long term (current) drug therapy | CPT/HCPCS: 96127; 99397 ==

== ENCOUNTER 2024-03-15 08:00 | Outpatient (REF) | payer MEDICARE, OTHER, SELFPAY ==
[2024-03-15 10:55] LABS: Appearance Urine Cloudy; Color Urine Yellow; Glucose Urine UA Negative (Negative); Leukocyte Esterase Urine Negative (Negative); MANUAL DIFF FLAG NO; Nitrite Urine Negative (Negative); PH 5.5 (5.0-9.0); Urine Blood Negative (Negative); Urine Ketones Negative (Negative); Urine Protein Negative (Neg-Trace)
[2024-03-15 11:00] LABS: Basophils Absolute Auto 0.1 X10*3/uL (0.0-0.2); Basophils Percent Auto 1.1 % (0-2); Eosinophils Absolute Auto 0.2 X10*3/uL (0.0-0.4); Eosinophils Percent Auto 2.6 % (0-4); Hematocrit 45.1 % (42.0-52.0); Imm Gran Abs Auto 0.04 X10*3/uL (0.00-0.03); Imm Gran Pct Auto 0.6 % (0.0-0.4); Lymphocytes Absolute Auto 1.4 X10*3/uL (1.2-4.9); Lymphocytes Percent Auto 22.6 % (20-40); Mean Corpuscular HGB Conc 33.3 g/dl (31.0-36.0); Mean Corpuscular Hemoglobin 29.6 pg (27.0-33.0); Mean Platelet Volume 8.8 fL (9.4-12.4); Monocytes Absolute Auto 0.6 X10*3/uL (0.1-1.2); Monocytes Percent Auto 8.9 % (2-11); Neutrophils Percent Auto 64.2 % (45-73); Platelet Count 200 X10*3/uL (160-400); Red Blood Count 5.07 X10*6/uL (4.60-5.80); Red Cell Distribution Width 13.1 % (11.0-16.0); White Blood Count 6.2 X10*3/uL (4.8-10.8)
[2024-03-15 11:33] LABS: Alanine Aminotransferase 26 U/L (0-40); Albumin Level 4.1 g/dL (3.5-5.0); Alkaline Phosphatase 49 U/L (39-117); Anion Gap 11 (12-20); Aspartate Amino Transferase 23 U/L (5-37); Bilirubin Total 0.4 mg/dL (0.0-1.0); Blood Urea Nitrogen 27 mg/dL (9-16); Calcium 9.5 mg/dL (8.4-10.2); Carbon Dioxide 28 mmol/L (22-29); Chloride 107 mmol/L (96-108); Cholesterol 182 mg/dL (<200); Estimated Glomerular Filt Rate 44; Glucose Fasting 110 mg/dL (60-99); HDL Cholesterol 46 mg/dL (>40); LDL Cholesterol Calculated 112 mg/dL (<100); Potassium 4.5 mmol/L (3.3-5.1); Sodium 141 mmol/L (135-145); Total Protein 7.3 g/dL (6.5-8.0); Triglycerides 120 mg/dL (<150)
[2024-03-15 11:34] LABS: TSH reflex Free T4 0.95 uIU/mL (0.32-4.0); Vitamin D 25-OH Total 91.2 ng/mL (>30)
== END 2024-03-15 08:01 | disposition home or self-care (01) ==
LOC: HO.HMGCLDS 08:00
PROVIDERS: PCP Nurse Practitioner Family; Visit Provider Nurse Practitioner Family
DX: Z00.00 Encounter for general adult medical examination without abnormal findings (principal); Z12.5 Encounter for screening for malignant neoplasm of prostate; Z13.6 Encounter for screening for cardiovascular disorders; E55.9 Vitamin D deficiency, unspecified
CPT/HCPCS: 36415; 80053; 80061; 81003; 82306; 84153; 84443; 85025

== ENCOUNTER 2024-04-09 14:18 | Outpatient (AMB) | payer MEDICARE, OTHER, SELFPAY ==
--- NOTE | 2024-04-09 14:24 | MHC.OFFVIS ---
Intake Visit Reasons: 1Y PVR/PSA(Set) Intake Note: Patient is Present for 1Y Follow Up For PSA/PVR Urology Med:Tadalafil Tamsulosin Antibiotic Allergy: None Blood Thinner: None TODAY'S PVR:17ML'S Herbicide Service Sales Representative Required: No Allergies morphine [MORPHINE] Adverse Reaction (Unknown, Verified 04/09/24 14:24) Nausea and Vomiting Influenza Vac Split Quad Allergy (Unknown, Uncoded 04/09/24 14:24) Hx of Guillain [place] Syndrome HPI Comments Details: Phillip PATINO is a very pleasant male. They are a patient of Nikos Lyn They are seen in the office today for the following urologic conditions. - lower urinary tract symptoms - postvoid dribbling - erectile dyfunction Yearly visit Good effect from using Kegel exercises for postvoid dribbling Good response to on demand tadalafil 20 mg Twelve month follow-up Lower Urinary Tract Symptoms: Current visit is for further symptom evaluation of, lower urinary tract symptoms -large prostate on examination with PCP.. Current treatment includes observation. Prostate Symptom Score Mild (0-8), Bother 1. Symptoms include weak stream, and are stable. Prior Prostate Score unknown. PSA 01/10 2.75, 03/15 3.4, 10/15 4.0, 10/16 4.1 - T 03/17 535 Prostate volume 60gm. Testing at next visit will include prn. 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 History of high cholesterol Hypertension Surgical History Hx of hemorrhoidectomy Hx of cholecystectomy Hx of tracheostomy History of ERCP History of liver biopsy History of esophagogastroduodenoscopy (EGD) Hx of colonoscopy Hx of cerebral aneurysm repair Family History Other Substance use disorder Social History Housing: House Alcohol intake: current Alcohol intake frequency: a few times a month Patient Tobacco Use Status: Former Tobacco user (27 years ago ) Tobacco use type: Cigarette Years Smoked: 20 years e-Cigarette/Vaping Use: Never Used Second Hand Smoke Exposure: No Current occupational status: retired Cognitive needs: No Hearing needs: No Vision needs: Yes Review of Systems Const Denies chills and Denies fever(s) Card Reports no additional complaints and Denies syncope Resp Denies cough GI Denies abdominal pain and Denies heartburn Reports as per HPI and Denies change in libido Neuro Denies syncope Psych Denies change in libido Endo Denies change in libido Physical Exam Const General: cooperative, healthy appearing, comfortable and no acute distress Orientation/consciousness: patient oriented x3 HEENT Face and sinus: Yes normal facial exam Mouth: moist mucous membranes Neck Neck: Yes normal visual inspection, Yes full ROM and Yes trachea midline Chest Chest palpation & inspection: normal inspection of the chest Resp Effort & Inspection: normal respiratory effort, able to speak in complete sentences and no respiratory distress GI Inspection: Yes normal to inspection Back/Spine/Pelvis Cervical Spine: normal cervical lordosis Thoracic/Lumbar Spine: thoracic and lumbar spine normal to inspection Skin General skin exam: no rashes or lesions noted Neuro General: patient oriented x3, gait normal, tone normal and moves all extremities Extrem General: Yes normal to inspection and Yes capillary refill normal Office Procedures Post Void Residual Post Residual Void Post Void Residual (PVR): 17 [id number] Void Residual by ultrasound Results AMB Urinalysis, Automated UA Leukoctes 0 Andrey/uL Last Edit by IAN Gallegos on 04/09/24 14:35 UA Nitrite Negative Last Edit by IAN Gallegos on 04/09/24 14:35 UA Urobilinogen 0.2 mg/dL Last Edit by IAN Gallegos on 04/09/24 14:35 UA Protein 0 mg/dL Last Edit by IAN Gallegos on 04/09/24 14:35 UA pH 6.0 Last Edit by IAN Gallegos on 04/09/24 14:35 UA Blood 0 Gaston/uL Last Edit by IAN Gallegos on 04/09/24 14:35 UA Specific [place] 1.010 Last Edit by IAN Gallegos on 04/09/24 14:35 UA Ketone Negative Last Edit by IAN Gallegos on 04/09/24 14:35 UA Bilirubin 0 mg/dL Last Edit by IAN Gallegos on 04/09/24 14:35 UA Glucose 0 mg/dL Last Edit by IAN Gallegos on 04/09/24 14:35 Results Reviewed Results Reviewed: Laboratory Last Values Urine pH (Auto) 6.0 04/09/24 14:34 Specific [place] (Auto) 1.010 04/09/24 14:34 Urine Protein (Auto) 0 mg/dL 04/09/24 14:34 Glucose (UA)(Auto) 0 mg/dL 04/09/24 14:34 Urine Ketones (Auto) Negative 04/09/24 14:34 Urine Blood (Auto) 0 Gaston/uL 04/09/24 14:34 Urine Nitrite (Auto) Negative 04/09/24 14:34 Urine Bilirubin (Auto) 0 mg/dL 04/09/24 14:34 Urine Urobilinogen (Auto) 0.2 mg/dL 04/09/24 14:34 Leukocyte Esterase (Auto) 0 Andrey/uL 04/09/24 14:34 Assessment & Plan Assessment & Plan (1) Weak urinary stream: Code(s): R39.12 - Poor urinary stream Category: Medical (2) Erectile dysfunction: Code(s): N52.9 - Male erectile dysfunction, unspecified Category: Medical (3) Bladder outlet obstruction: Code(s): N32.0 - Bladder-neck obstruction Category: Medical Plan Continue on demand medication Twelve month follow-up Orders: Orders AMB Urinalysis Automated 04/09/24 Z13.9 - Encounter for screening, unspecified Medications: Refilled tadalafil On demand medication take 60 minutes before intended activity 20 mg PO ONCE PRN 30 tabs 0RF sexual activity 30 days N52.9 - Male erectile dysfunction, unspecified Patient Instructions: Imaging studies, laboratory and physical exam results were discussed and reviewed in detail. No major barriers to patient understanding were identified. An opportunity to ask questions regarding the treatment plan was provided. All questions were answered. The patient expressed understanding and agreement with the above treatment plan. The patient is aware they should contact our office by phone for worsening of their current condition or the appearance of new urologic symptoms. Compliance is encouraged with any medications and followup testing that is ordered. It is a privilege to participate in the urologic care of your patient. If you have any questions or concerns regarding treatment for the above conditions, or other urologic issues, please do not hesitate to contact me. The office telephone contact is [phone]. This note is constructed using voice recognition software. While every effort has been made to ensure accuracy windows application developer errors may have been included. Yours sincerely, Dr Manoj Alcaraz MD, [facility] - Urology Providers of Expert, Compassionate Care for the Genitourinary System Coding Level of Care Code Est Pt Level 4 (40344) Diagnoses Weak urinary stream R39.12 Erectile dysfunction N52.9 Bladder outlet obstruction N32.0 CPT Codes Post Residual Void - PVR CPT Code: 30479-Htlq Void Residual by ultrasound ([id number])
== END 2024-04-09 16:01 | disposition home or self-care (01) ==
PROVIDERS: PCP Nurse Practitioner Family; Visit Provider Urology
DX: Z13.9 Encounter for screening, unspecified (principal)
CPT/HCPCS: 99214

== ENCOUNTER → 2024-04-09 14:18 | Outpatient (BNVA) | payer MEDICARE, OTHER, SELFPAY | PROVIDERS: PCP Nurse Practitioner Family; Visit Provider Urology | DX: R39.12 Poor urinary stream (principal); N52.9 Male erectile dysfunction, unspecified; N32.0 Bladder-neck obstruction | CPT/HCPCS: 51798; 81003; 99212 ==

== ENCOUNTER 2024-10-08 12:52 | Outpatient (AMB) | payer MEDICARE, OTHER, SELFPAY ==
--- NOTE | 2024-10-08 12:53 | A.OFFVIS_ITS ---
Intake Visit Reasons: 6 month follow up Intake Note: Patient is Present for 6 MO follow up for ED and bladder obstruction Urology Med:Tadalafil Tamsulosin Antibiotic Allergy: None Blood Thinner: None Last Putter Away Required: No Accompanied by: Self / Same As Patient Allergies morphine (MORPHINE) Adverse Reaction (Unknown, Verified 10/08/24 12:53) Nausea and Vomiting Influenza Vac Split Quad Allergy (Unknown, Uncoded 04/09/24 14:24) Hx of Guillain [place] Syndrome HPI Comments Details: Phillip PATINO is a very pleasant male. They are a patient of Nikos Lyn They are seen in the office today for the following urologic conditions. - lower urinary tract symptoms - postvoid dribbling - erectile dyfunction Telemedicine Evaluation 15 min Consultation [facility] Six-month visit Good effect from using Kegel exercises for postvoid dribbling Good response to on demand tadalafil 20 mg 12 m f/u Lower Urinary Tract Symptoms: Current visit is for further symptom evaluation of, lower urinary tract symptoms - large prostate on examination with PCP.. Current treatment includes observation. Prostate Symptom Score Mild (0-8), Bother 1. Symptoms include weak stream, and are stable. Prior Prostate Score unknown. PSA 01/10 2.75, 03/15 3.4, 10/15 4.0, 10/16 4.1, 03/19 3.3 - T 03/17 535 Prostate volume 60gm. Testing at next visit will include prn. 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 History of high cholesterol Hypertension Surgical History Hx of hemorrhoidectomy Hx of cholecystectomy Hx of tracheostomy History of ERCP History of liver biopsy History of esophagogastroduodenoscopy (EGD) Hx of colonoscopy Hx of cerebral aneurysm repair Family History Other Substance use disorder Social History (Reviewed 03/11/24 @ 10:48 by JEFFERSON Flores Housing: House Alcohol intake: current Alcohol intake frequency: a few times a month Patient Tobacco Use Status: Former Tobacco user (27 years ago ) Tobacco use type: Cigarette Years Smoked: 20 years e-Cigarette/Vaping Use: Never Used Second Hand Smoke Exposure: No Current occupational status: retired Cognitive needs: No Hearing needs: No Vision needs: Yes Review of Systems Const All systems reviewed & are unremarkable except as noted in HPI and below Reports no additional complaints Resp Reports no additional complaints GI Reports no additional complaints Reports as per HPI Musc Reports no additional complaints Physical Exam Telemedicine evaluation Appropriate responses Regular breathing rate and rhythm HEENT Head: Yes normal to inspection Ears: hearing grossly normal bilaterally Eyes General: appearance normal, both eyes and all related structures Neck Neck: Yes normal visual inspection Chest Chest palpation & inspection: normal inspection of the chest Resp Effort & Inspection: normal respiratory effort and able to speak in complete sentences Telehealth Telehealth Telehealth Platform: [facility] Location of provider rendering services: practice address Location of patient: address on file Patient Identification confirmed using: Name, : Yes Telehealth method: video Patient verbally consented to treatment: Yes Patient verbally consented to billing insurance company: Yes Patient informed of any privacy concerns related to visit: Yes Minutes spent on Phone/Video with Pt.: 15 Assessment & Plan Assessment & Plan (1) Erectile dysfunction: Code(s): N52.9 - Male erectile dysfunction, unspecified Category: Medical (2) Urinary dribbling: Code(s): N39.43 - Post-void dribbling Category: Medical Plan Twelve month follow-up Medications: Discontinued tamsulosin Discontinued Reason: Patient Completed Course 0.4 mg PO BEDTIME 90 days 90 caps 1RF N32.0 - Bladder-neck obstruction Patient Instructions: This note is constructed using voice recognition software. While every effort has been made to ensure accuracy life advisor errors may have been included. Imaging studies, laboratory and physical exam results were discussed and reviewed in detail. No major barriers to patient understanding were identified. An opportunity to ask questions regarding the treatment plan was provided. All questions were answered. The patient expressed understanding and agreement with the above treatment plan. The patient is aware they should contact our office by phone for worsening of their current condition or the appearance of new urologic symptoms. Compliance is encouraged with any medications and followup testing that is ordered. It is a privilege to participate in the urologic care of your patient. If you have any questions or concerns regarding treatment for the above conditions, or other urologic issues, please do not hesitate to contact me. The office telephone contact is [phone]. Sincerely, Dr Manoj Alcaraz MD, [facility] - Urology Compassionate Specialist Care for the Genitourinary System Coding Level of Care Code Tele Est Pt Level 3 (46270) Complex EM visit Add On G2211 Diagnoses Erectile dysfunction N52.9 Urinary dribbling N39.43
--- OUTSIDE RECORDS SUMMARY | 2024-10-08 14:03 | XMS_ITS | Encounter Summary ---
Author Organization [facility] Address [address] [place] [address] Phone Care Team Providers Care Peer Specialist Name Role Phone Nikos Cooper NP Primary Care Provider [phone] Encounter Details Date Type Department Care Team (Late st Contact Info) Description 09/20/2023 Documentation Only [facility] [address] [place] [address] Carlie [place], [place] [address] [place] [id number] Social History Tobacco Use Types Packs/Day Years Used Date Smoking Tobacco: Former Sex and Gender Information Value Date Recorded Sex Assigned at Not on file Legal Sex Male 4:49 PM EST Gender Identity Not on file Sexual Orientation Not on file documented as of this encounter Plan of Treatment Upcoming Encounters Date Type Department Care Team (Late st Contact Info) Description 11/11/2024 2:30 PM EDT Office Visit [facility] [address] [place] [address] Erik Mcgovern MD [address] [place] [address] [place] [address] documented as of this encounter Visit Diagnoses Not on filedocumented in this encounter Care Teams Peer Specialist Relationship Specialty Start Date End Date Nikos Cooper NP [address] [place], [place] [id number] PCP - General Nurse Practitioner 06/25/20 documented as of this encounter
--- OUTSIDE RECORDS SUMMARY | 2024-10-08 14:03 | XMS_ITS | Patient Health Record ---
Author Organization [facility] Address [address] [place] [id number] Care Team Providers Care Clinical Team Lead Name Role Phone MAINE LOPEZ Primary Care Provider Alton Lozano Unavailable [phone] Hollis Mcdonough MD Unavailable Unavailable Allergies Allergen (clinical drug ingredient) Drug/Non Drug Allergy documented on EMR Reaction Allergy Type Onset Date Status Vaccine product containing Influenza virus antigen (medicinal product) Flu Vaccines (uncoded) Unknown Allergy Active Reason For Referral No Information Medications Medication SIG (Take, Route, Frequency, Duration) Notes Start Date End Date Status Famotidine 40 MG TAKE 1 TABLET EVERY MORNING AND TABLET IN THE EARLY EVENING for 90 Active oxyCODONE HCl as needed Not-Ta della Lovastatin 20mg Not- Taking Famotidine 20 MG Orally Twice a day Started 06/25/2020 Active Loperamide HCl 2 MG 1 or 2 Orally Four times a day as needed for diarrhea- you can take it before a meal to prevent diarrhea as well Active Lisinopril 10 MG TAKE 1 TABLET BY MOUTH EVERY DAY Oral for 90 Active Famotidine 20 MG 1 Orally Twice a day for 30 day(s) 07/08/2020 Active Tylenol PRN Active Immunizations Vaccine Route Administration Date Status Comme nts Influenza Unknown 11/07/2019 Refused Influenza Unknown 07/08/2020 Refused Problems Problem Type SNOMED Code ICD Code Onset Dates Problem Status W/U Status Risk Notes Problem 390599295 Encounter for screening for malignant neoplasm of colon (Z12.11) Active confirmed Problem 971313904 History of adenomatous polyp of colon (Z86.010) Active confirmed Problem 84210024 Abdominal pain, epigastric (R10.13) Active confirmed Problem 742898104 Gastroesophageal reflux disease without esophagitis (K21.9) Active confirmed Problem 848473023 Elevated liver enzymes (R74.8) Active confirmed Problem 092953365 Barretts esophag us without dysplasia (K22.70) Active confirmed Problem 574564190 Gallstones (K80.20) Active confirmed Problem Gastroesophageal reflux disease (643147734) GERD (gastroesophageal reflux disease) (K21.9) Active confirmed Problem 115157037 Abdominal pain, right upper quadrant (R10.11) Active confirmed Problem Ortega esophagu s (K22.70) Active confirmed Problem 73188746 Diarrhea, unspecified type (R19.7) Active confirmed Problem 303194924 Elevated liver function tests (R94.5) Active confirmed Plan Of Treatment Pending Test Test Name Order Date LIVER PROFILE 02/16/2016 LIVER PROFILE 12/17/2015 AMYLASE 01/05/2016 LIPASE 01/05/2016 CBC w DIFF 01/05/2016 [id number] (A1A) 12/17/2015 MITOCHONDRIAL AB 12/17/2015 SMOOTH MUSCLE ANTIBODIES 12/17/2015 NUC HIDA SCAN 12/17/2015 FLUOR. ANTINUCLEAR AB SCREEN ([place]) 11/26 Future Test Test Name Order Date COLONOSCOPY 09/18/2014 UPPER GI ENDOSCOPY 02/16/2016 UPPER GI ENDOSCOPY 11/07/2019 COLONOSCOPY 11/07/2019 Insurance Providers Payer Name Payer Address Payer Phone Subscriber Number Group Number Insured Name Patient Relationship to Insured Coverage Start Date Coverage End Date MEDICARE OF [place] [address] [place] [address] [id number] DAVID PATINO Self - patient is the insured [facility] [address] [place] [address] [id number] DAVID PATINO Self - patient is the insured Medical (General) History Medical History History ICD Code Colonoscopy 04-23-2009-tubular adenoma re moved Hypertension Hyperlipidemia GERD with a distal esophagea l papilloma on EGD in 08/2011--F/U exam in 02/2012 with the removal of the small esophageal lesion-the path showed a hemangioma Denies [place],DM,CVA,Lung disease,renal dise ase Ortega's esophagus found on a followup upper endoscopy in 01/2013---small area, no dysplasia--small HH--- there was no evidence of any residual esophageal polyp; F/U EGD in 04/2016 with small area of Ortega's and no dysplasia Colonoscopy in October 5 revealed small tubular adenomas and hyperplastic polyps that were removed, as well as some sigmoid diverticulosis and internal hemorrhoids Elevated LFTs--intraoperativ e liver biopsy in January of 2016 revealed very nonspecific inflammation and no fibrosis--there was no fatty liver ERCP in 02/2016 with removal of CBD jarretn franci Cervantes 03/2018--sever e with resp. failure and trach/Gtube-4 weeks at [facility] and 4 weeks at Rehab---trach and Gtube now out as of the 10/2019 OV EGD 12/2019-HH, small area of Ortega's- no dysplasia Colonoscopy 12/2019-1 small tubular trinity markus Surgical History Surgery Date(Month/Year) 2 cerebral aneurysm surgeries in the 198 0's Left knee Cholecystectomy 01/2016 Gtube/Trach as above Hemorrhoids with Dr. Mcdonough
== END 2024-10-08 16:09 | disposition home or self-care (01) ==
LOC: HO.HUSH 12:52
PROVIDERS: PCP Nurse Practitioner Family; Visit Provider Urology
DX: N52.9 Male erectile dysfunction, unspecified (principal); N39.43 Post-void dribbling
CPT/HCPCS: 99213; G2211